=== PATIENT | male | born 1985 | race Asian ===

== ENCOUNTER 2024-04-08 14:23 | Outpatient (AMB) | payer OTHER, SELFPAY ==
--- NOTE | 2024-04-08 14:49 | A.OFFPC_ITS ---
Vital Signs 04/08/24 15:18 Height 5 ft 9 in Weight 154 lb 8 oz BMI 22.8 BP 114/66 Blood Pressure Location Lt brachial Position Sitting Respiration 12 Pulse 80 Pulse Source Pulse Oximeter Pulse Oximetry (%) 98 Oxygen Delivery Method Room Air Intake Visit Reasons: Establish care HPI HPI Comments History of Present Illness Details 38 year old male with a past medical his tory of intermittent GERD presenting to establish care. Transfer from Dr Yun Has been having difficulty sleeping. Works mostly third shift. Has trouble falling asleep and then sometimes fall asleep and then wakes up just a few hours later. He is switching jobs soon ROS CONSTITUTIONAL: Denies weight loss, fever and chills. HEENT: Denies changes in vision and hearing. RESPIRATORY: Denies SOB and cough. CV: Denies palpitations and CP GI: Denies abdominal pain, nausea, vomiting and diarrhea. : Denies dysuria and urinary frequency. MSK: Denies new myalgia and joint pain. SKIN: Denies rash and pruritus. NEUROLOGICAL: see hpi PSYCHIATRIC: Denies recent changes in mood. PHYSICAL EXAM: GENERAL: Alert and oriented x 3. NAD EYES: EOMI. Anicteric. HENT: Moist mucous membranes. No scleral icterus. No cervical lymphadenopathy. LUNGS: Clear to auscultation bilaterally. CARDIOVASCULAR: Regular rate and rhythm. No murmur. No JVD. ABDOMEN: Soft, non-tender +bs EXTREMITIES: No edema. Non-tender. SKIN: No rashes or lesions. Warm. NEUROLOGIC: No focal neurological deficits. CN II-XII grossly intact PSYCHIATRIC: Cooperative. Appropriate mood and affect [facility] Medical History No pertinent past medical history Surgical History No pertinent past surgical history Family History Father Diabetes Social History Household Members: Spouse and Children Both parents involved: No Caregiver staying overnight: No Housing: Apartment Are you a primary animal care assistant to a significant other at home: No Do you presently have visiting nurse or other home services: No 75 years or older and lives alone: No Alcohol intake: never Patient Tobacco Use Status: Never used Tobacco e-Cigarette/Vaping Use: Never Used service: No Current occupational status: previously employed Current occupation: [employer] Sexual orientation: Straight/Heterosexual Gender identity: Male Cognitive needs: No Hearing needs: No Vision needs: No Questionnaire PHQ-9 Over the last 2 weeks, how often have you been bothered by any of the following problems? 1. Little interest or pleasure in doing things: not at all 2. Feeling down, depressed, or hopeless: not at all 3. Trouble falling or staying asleep, or sleeping too much: not at all 4. Feeling tired or having little energy: not at all 5. Poor appetite or overeating: not at all 6. Feeling bad about yourself - or that you are a failure or have let yourself or your family down: not at all 7. Trouble concentrating on things, such as reading the newspaper or watching television: not at all 8. Moving or speaking so slowly that other people could have noticed. Or the opposite - being so fidgety or restless that you have been moving around a lot more than usual: not at all 9. Thoughts that you would be better off or of hurting yourself in some way: not at all Total score: 0 Depression Screening Interpretation: Negative (neg) Depression Screening Done: Yes 19016 - PHQ-9 Billing: Yes Source: Developed by Drs. Joe Harrison, Starla June, Garth Petersen and colleagues, with an educational analisa from [employer]. Thrive Questionnaire Date Thrive assessed: 04/08/24 I am a: Patient What is your living situation today?: I have a steady place to live Within the past 12 months, did the food you bought not last and you didn't have the money to get more?: Never true Within the past 12 months, did you worry whether your food would run out before you got money to buy more?: Never true Do you have trouble paying for medicines?: No Do you have trouble getting transportation to medical appointments?: No Do you have trouble paying your heating and electricity bill?: No Do you have trouble taking care of your child, family member or friend?: No Do you have trouble with day-to-day activities such as bathing, preparing meals, shopping, managing finances, etc.?: No Are you currently unemployed and looking for a job?: No Are you interested in more education?: No Please select the resources that you would like help with: None THRIVE Score: 0 GABBY-7 AMB Questionnaire GABBY-7 Date GABBY - 7 assessed: 04/08/24 Feeling nervous, anxious, or on edge: 0 = Not at all Not being able to stop or control worryin = Not at all Worrying too much about different things: 0 = Not at all Trouble relaxin = Not at all Being so restless that it is hard to sit still: 0 = Not at all Becoming easily annoyed or irritable: 0 = Not at all Feeling afraid as if something awful might happen: 0 = Not at all Total GABBY-7 score (0-4 normal; 5-9 mild; 10-14 moderate; 15-21 severe): 0 Source: Developed by Drs. Joe Harrison, Starla June, Garth Petersen and colleagues, with an educational analisa from [employer]. GABBY-7 Assessment Billing GABBY-7 Assessment Tool: GABBY-7 Assessment 48419 Physical exam (Primary Care) Vital Signs: Last Vital Signs Pulse 80 04/08/24 15:18 Resp 12 04/08/24 15:18 BP 114/66 04/08/24 15:18 Pulse Ox 98 04/08/24 15:18 Oxygen Delivery Method Room Air 04/08/24 15:18 BMI result Body Mass Index 22.8 Tobacco/Smoking Status: Tobacco use Status Patient Tobacco Use Status Never used Tobacco 04/08/24 15:14 e-Cigarette/Vaping Use Never Used 04/08/24 15:14 PHQ-9: PHQ-9 Score PHQ-9: Total score 0 04/17/24 11:59 Depression Screening Interpretation: Negative (neg) Thrive Assessment: Date of Thrive Assessment Date Thrive assessed 04/08/24 04/08/24 14:50 Assessment and Plan Assessment & Plan (1) Establishing care with new doctor, encounter for: Code(s): Z76.89 - Persons encountering health services in other specified circumstances Plan: 38 y/o to establish care. Past medical, surgical, social and family history reviewed. (2) Difficulty sleeping: Code(s): G47.9 - Sleep disorder, unspecified Plan: Trial trazodone. Follow up if ineffective. Schedule physical 6-12 months Medications: New trazodone 50 mg PO BEDTIME PRN 90 tabs 3RF sleep 90 days Coding Level of Care Code New Pt Level 4 (13319) Diagnoses Establishing care with new doctor, encounter for Z76.89 Difficulty sleeping G47.9 Additional Codes GABBY-7 Assessment Billing - GABBY-7 Assessment Tool: GABBY-7 Assessment 29852 ([id number])
[2024-04-08 15:18] VITALS: BP 114/66; PULSE 80; RESP 12; O2SAT 98; BMI 22.8
== END 2024-04-08 15:41 | disposition home or self-care (01) ==
PROVIDERS: PCP Internal Medicine; Visit Provider Internal Medicine
DX: G47.9 Sleep disorder, unspecified (principal); Z76.89 Persons encountering health services in other specified circumstances
CPT/HCPCS: 99204

== ENCOUNTER 2024-10-24 11:17 | Outpatient (AMB) | payer OTHER, SELFPAY ==
--- NOTE | 2024-10-24 11:38 | MHC.PC.OV ---
Vital Signs 10/24/24 11:48 Height 5 ft 7.32 in Weight 156 lb 6 oz BMI 24.3 BP 98/62 Blood Pressure Location Rt brachial Position Sitting Respiration 12 Pulse 48 L Pulse Source Pulse Oximeter Pulse Oximetry (%) 99 Oxygen Delivery Method Room Air Intake Visit Reasons: annual Intake Note: Physical Exhibit Technician Required: No Allergies No Known Allergies Allergy (Verified 10/24/24 11:46) Medication List - Last Reconciled 10/24/24 by Sachi Jolly MD No Known Home Meds Tobacco use date assessed: 10/24/24 Dental Screening Dental Screen Date: 10/24/24 Did you have a dental visit in the last 12 months?: No Did you have a dental problem in the last 6 months where you did not have access to dental care?: No Was dental information given to patient?: Patient declined HPI HPI Comments History of Present Illness Details 38 year old male with a past medical history of intermittent GERD presenting to [facility]. Transfer from Dr Yun Has been having difficulty sleeping. This improved when he stopped working third shift. Some stress over work-a lot of financial responsibility. Just for the past month has started [employer]. So hoping this will pay more Less sexual desire. Denies ED. some fatigue Overdue dental ROS see HPI PHYSICAL EXAM: GENERAL: Alert and oriented x 3. NAD EYES: EOMI. Anicteric. HENT: Moist mucous membranes. No scleral icterus. No cervical lymphadenopathy. LUNGS: Clear to auscultation bilaterally. CARDIOVASCULAR: Regular rate and rhythm. No murmur. No JVD. ABDOMEN: Soft, non-tender +bs : Normal penis and testes EXTREMITIES: No edema. Non-tender. SKIN: No rashes or lesions. Warm. NEUROLOGIC: No focal neurological deficits. CN II-XII grossly intact PSYCHIATRIC: Cooperative. Appropriate mood and affect [facility] Medical History No pertinent past medical history Surgical History No pertinent past surgical history Family History Father Diabetes Social History Household Members: Spouse and Children Both parents involved: No Caregiver staying overnight: No Housing: Apartment Are you a primary medicare sales executive to a significant other at home: No Do you presently have visiting nurse or other home services: No 75 years or older and lives alone: No Alcohol intake: never Patient Tobacco Use Status: Never used Tobacco e-Cigarette/Vaping Use: Never Used service: No Current occupational status: employed and previously employed Current occupation: [employer] Current occupational exposures/hazards: No Sexual orientation: Straight/Heterosexual Gender identity: Male Cognitive needs: No Hearing needs: No Vision needs: No Questionnaire Thrive Questionnaire Date Thrive assessed: 04/08/24 GABBY-7 AMB Questionnaire GABBY-7 Date GABBY - 7 assessed: 04/08/24 Source: Developed by Drs. Joe Harrison, Starla June, Garth Petersen and colleagues, with an educational analisa from [employer]. Physical exam (Primary Care) Tobacco/Smoking Status: Tobacco use Status Patient Tobacco Use Status Never used Tobacco 10/24/24 11:40 e-Cigarette/Vaping Use Never Used 10/24/24 11:40 Thrive Assessment: Date of Thrive Assessment Date Thrive assessed 04/08/24 10/24/24 11:40 Coding Level of Care Code Est Pt Prev Care 40-64y(36580) Diagnoses Physical exam Z00.00 No history of major surgery within 1 month Z78.[address] R68.82 Difficulty sleeping G47.9 Assessment & Plan Assessment & Plan (1) Physical exam: Code(s): Z00.00 - Encounter for general adult medical examination without abnormal findings Category: Medical (2) No history of major surgery within 1 month: Code(s): Z78.9 - Other specified health status (3) Decreased sex drive: Code(s): R68.82 - Decreased libido Category: Medical (4) Difficulty sleeping: Code(s): G47.9 - Sleep disorder, unspecified Category: Medical Plan 39 y/o for physical exam Interval history reviewed Preventive measures for age discussed Decreased libido-testosterone ordered Labs due and ordered Orders: Orders Complete Blood Count Auto Diff Today Z13.0 - Encounter for screening for diseases of the blood and blood-forming organs and certain disorders involving the immune mechanism, Z13.220 - Encounter for screening for lipoid disorders, Z13.228 - Encounter for screening for other metabolic disorders Comprehensive Met. Panel Today Z13.0 - Encounter for screening for diseases of the blood and blood-forming organs and certain disorders involving the immune mechanism, Z13.220 - Encounter for screening for lipoid disorders, Z13.228 - Encounter for screening for other metabolic disorders Lipid Panel Today Z13.0 - Encounter for screening for diseases of the blood and blood-forming organs and certain disorders involving the immune mechanism, Z13.220 - Encounter for screening for lipoid disorders, Z13.228 - Encounter for screening for other metabolic disorders TSH reflex Free T4 Today Z13.0 - Encounter for screening for diseases of the blood and blood-forming organs and certain disorders involving the immune mechanism, Z13.220 - Encounter for screening for lipoid disorders, Z13.228 - Encounter for screening for other metabolic disorders Testosterone, Free/Total Today R68.82 - Decreased libido
[2024-10-24 11:48] VITALS: BP 98/62; PULSE 48; RESP 12; O2SAT 99; BMI 24.3
== END 2024-10-24 12:13 | disposition home or self-care (01) ==
PROVIDERS: PCP Internal Medicine; Visit Provider Internal Medicine
DX: Z00.00 Encounter for general adult medical examination without abnormal findings (principal); Z78.9 Other specified health status; R68.82 Decreased libido; G47.9 Sleep disorder, unspecified

== ENCOUNTER 2024-11-11 13:13 | Emergency (ER) | payer OTHER, SELFPAY ==
--- NOTE | ~2024-11-11 | XR_ITS ---
EXAMINATION: XR SHOULDER 2 OR MORE VIEWS LEFT HISTORY: pain, injury COMPARISON: There are no prior studies available for comparison. FINDINGS: Three views of the left shoulder are submitted. Osseous mineralization is normal. There is no fracture or dislocation. The glenohumeral and acromioclavicular joint spaces are preserved. The soft tissues are unremarkable. XR/XR shoulder LT min 2V IMPRESSION: Unremarkable examination of the left shoulder. Electronically signed by: Joe Farooq MD 11/11/2024 01:44 PM EDT
[2024-11-11 13:29] VITALS: BP 127/72; PULSE 63; RESP 18; TEMP 36.2; O2SAT 97; BMI 23.5
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
[2024-11-11 14:27] VITALS: BP 127/72; PULSE 63; RESP 18; TEMP 36.2; O2SAT 97
== END 2024-11-11 14:28 | disposition home or self-care (01) ==
PROVIDERS: Emergency Provider Emergency Medicine; PCP Internal Medicine
DX: S49.92XA Unspecified injury of left shoulder and upper arm, initial encounter (principal); M25.512 Pain in left shoulder; V59.9XXA Occupant (driver) (passenger) of pick-up truck or van injured in unspecified traffic accident, initial encounter; Y93.9 Activity, unspecified; Y92.488 Other paved roadways as the place of occurrence of the external cause; Y99.8 Other external cause status
CPT/HCPCS: 73030; 99282; 99283

== ENCOUNTER → 2024-11-11 13:30 | Outpatient (BNV) | payer OTHER, SELFPAY | PROVIDERS: PCP Internal Medicine; Visit Provider Radiology Diagnostic Radiology | DX: M25.512 Pain in left shoulder (principal) | CPT/HCPCS: 73030 ==

== ENCOUNTER 2024-11-18 09:38 | Outpatient (AMB) | payer OTHER, SELFPAY ==
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
[2024-11-18 09:47] VITALS: BP 102/68; PULSE 58; RESP 12; TEMP 36.6; O2SAT 98; BMI 23.8
== END 2024-11-18 10:05 | disposition home or self-care (01) ==
PROVIDERS: PCP Internal Medicine; Visit Provider Nurse Practitioner Family
DX: Z09 Encounter for follow-up examination after completed treatment for conditions other than malignant neoplasm (principal); V89.2XXA Person injured in unspecified motor-vehicle accident, traffic, initial encounter; M25.512 Pain in left shoulder

== ENCOUNTER → 2024-11-18 09:38 | Outpatient (BNVA) | payer OTHER, SELFPAY | PROVIDERS: PCP Internal Medicine; Visit Provider Nurse Practitioner Family | DX: Z09 Encounter for follow-up examination after completed treatment for conditions other than malignant neoplasm (principal); M25.512 Pain in left shoulder | CPT/HCPCS: 96127 ==